=== PATIENT | female | born 1970 | race Caucasian/White ===

== ENCOUNTER 2021-08-02 08:17 | Outpatient (CLI) | payer OTHER | END 2021-08-02 23:59 | disposition home or self-care (01) | LOC: CFH 08:17 → RAD 23:59 | PROVIDERS: ATTEND Family Medicine | DX: Z12.31 Encounter for screening mammogram for malignant neoplasm of breast (principal); K80.50 Calculus of bile duct without cholangitis or cholecystitis without obstruction; R10.9 Unspecified abdominal pain; R60.9 Edema, unspecified; Z90.49 Acquired absence of other specified parts of digestive tract | CPT/HCPCS: 76700; 77063; 77067; 93970 ==

== ENCOUNTER 2021-08-14 09:53 | Outpatient (CLI) | payer OTHER | END 2021-08-14 23:59 | disposition home or self-care (01) | LOC: CFH 09:53 | PROVIDERS: ATTEND Family Medicine | DX: Z02.9 Encounter for administrative examinations, unspecified (principal) ==